=== PATIENT | female | born 1970 | race Asian ===

== ENCOUNTER 2016-06-15 19:16 | Emergency (ER) | payer OTHER ==
[~2016-06-15] VITALS: Ht 149.9 cm; Wt 68.0 kg
[2016-06-15 19:22] VITALS: Ht 149.9 cm; Wt 68.0 kg
[2016-06-15 19:33] VITALS: TEMP 98.3
[2016-06-15] MEDS ORDERED: NITROGLYCERIN 2% 1 GM OINT PKT TD STA (19:35)
[2016-06-15] MEDS ORDERED: ASPIRIN 81 MG TAB PO STA (19:35)
[2016-06-15] MEDS ORDERED: morphine 4 MG/ML VIAL IV STA (19:49)
[2016-06-15] MEDS ORDERED: ONDANSETRON 4 MG INJ IV STA (19:49)
[2016-06-15] MEDS ORDERED: NITROGLYCERIN (SL) 0.4 MG TAB SL PRN (20:00)
[2016-06-15] MEDS ORDERED: ATOR10TA65 PO (20:04)
[2016-06-15] MEDS ORDERED: METF1000 PO (20:04)
[2016-06-15] MEDS ORDERED: PRED20TA PO (20:04)
[2016-06-15 20:05] LABS: ADD SCAN DIFF NO
[2016-06-15] MEDS ORDERED: LORA10TA3 PO (20:05)
[2016-06-15] MEDS ORDERED: LOSA25TA5 PO (20:05)
[2016-06-15] MEDS ORDERED: ELTR75TA PO (20:06)
[2016-06-15] MEDS ORDERED: OMEP20CA16 PO (20:06)
[2016-06-15] MEDS ORDERED: ERGO500037 PO (20:07)
[2016-06-15 20:22] LABS: ANION GAP 14 (8-16); BLOOD UREA NITROGEN 7 mg/dl (7-20); CALCIUM 9.5 mg/dl (8.4-10.2); CARBON DIOXIDE 30 mmol/L (21-31); CHLORIDE 99 mmol/L (97-110); CREATININE 0.34 mg/dl (0.44-1.00); GLUCOSE 147 mg/dl (70-220); POTASSIUM 4.6 mmol/L (3.5-5.1); SODIUM 138 mmol/L (135-144)
--- NOTE | 2016-06-15 20:23 | RADRPT ---
PROCEDURE: CT Head without contrast. CLINICAL INDICATION: Headaches TECHNIQUE: The study was performed utilizing a GE 64-slice multidetector CT scanner. Direct spiral axial CT images of the brain were obtained from the vertex to the skull base without contrast. Cor onal and sagittal reformat images are provided. The CTDI vol is 44.68 mGy and the DLP is 720.23 mGy -cm. The images were reviewed on a PACS workstation. COMPARISON: No prior studies are available for comparison. FINDINGS: The ventricles and cortical sulci are within normal limits. The pascal-white matter differentiation i s maintained. No intra or extra-axial fluid collection or mass effect or shift in the midline struc tures is seen. The visualized paranasal sinuses, mastoid air cells, orbits, and calvarium are unrem arkable. IMPRESSION: Unremarkable CT of the head without contrast. RPTAT: [facility]PN[facility] Physician Markos Date Time Electronically viewed and signed by Physician Markos on 06/15/2016 20:23 /
[2016-06-15 20:33] LABS: INR 0.99; PROTIME 13.1 Sec (12.2-14.2)
[2016-06-15 20:34] LABS: PARTIAL THROMBOPLASTIN TIME 40.1 Sec (25.0-35.0)
[2016-06-15 20:44] LABS: TROPONIN-I < 0.012 ng/ml (0.00-0.12)
[2016-06-15 21:02] LABS: ABNORMAL IP MESSAGE 1; HEMATOCRIT 43.7 % (37.0-47.0); HEMOGLOBIN 13.8 g/dl (12.0-16.0); MEAN CORPUSCULAR HEMOGLOBIN 26.9 pg (29.0-33.0); MEAN CORPUSCULAR HGB CONC 31.6 g/dl (32.0-37.0); MEAN CORPUSCULAR VOLUME 85.2 fl (82.0-101.0); MEAN PLATELET VOLUME 11.1 fl (7.4-10.4); PLATELET COUNT 679 10^3/UL (140-415); RED BLOOD COUNT 5.13 10^6/ul (4.20-5.40); RED CELL DISTRIBUTION WIDTH 13.2 % (11.5-14.5); WHITE BLOOD COUNT 29.1 10^3/ul (4.8-10.8)
--- NOTE | 2016-06-15 21:11 | RADRPT ---
PROCEDURE: XR Chest. CLINICAL INDICATION: Chest pain. TECHNIQUE: Single frontal view of the chest. COMPARISON: None. FINDINGS: Cardiomegaly. Mild pulmonary vascular ingestion and patchy air space disease. No signs of pleural f luid or pneumothorax are seen. The osseous structures and soft tissues are unremarkable. IMPRESSION: Mild failure. RPTAT: [facility] Physician Laquita Date Time Electronically viewed and signed by Physician Laquita on 06/15/2016 21:11 RS/
[2016-06-15 21:15] VITALS: BP 127/78; PULSE 98; RESP 21
[2016-06-15] MEDS ORDERED: ONDA4TAB14 PO (21:22)
[2016-06-15] MEDS ORDERED: HYDR-902 PO (21:22)
--- NOTE | 2016-06-15 21:24 | ERD ---
ER Documentation Chief Complaint Date/Time DATE: 06/15/16 TIME: 21:24 Chief Complaint [place], body pain/weakness, tingling back, BLE and occiputal head all day HPI Patient is a 45-year-old female with diabetes and hypertension who presents with multiple complaints. She has headache, chest pain, and whole body pain. She says that she feels pain from her head down to her toes. She says that it is a 6 out of 10 pain. She has had this pain before. The symptoms started at 8 AM and come and goes. She feels pins and needles in her back and numbness and tingling in the bilateral lower extremities. She has had no aspirin as of yet. She tried Tylenol. Upon review of old medical records this the patient's first visit to the emergency department. She has an appointment with her doctor scheduled for tomorrow morning. ROS All systems reviewed and are negative except as per history of present illness. Medications Home Meds Active Scripts Ondansetron (Ondansetron Odt) 4 Mg Tab.rapdis, 4 MG PO Q6H Y for NAUSEA AND/OR VOMITING, #30 TAB Prov:MICHOACANO CARLISLE MD 06/15/16 Hydrocodone/Acetaminophen ([place] 10-325 Tablet) 1 Each Tablet, 1 TAB PO Q6H Y for PAIN, #7 TAB Prov:MICHOACANO CARLISLE MD 06/15/16 Reported Medications Ergocalciferol (Vitamin D2) (VITAMIN D2) 50,000 Unit Capsule, 43821 UNIT PO Q7D , CAP 06/15/16 Eltrombopag Olamine (Promacta) 75 Mg Tablet, 75 MG PO DAILY, TAB 06/15/16 Omeprazole* (Omeprazole*) 20 Mg Capsule.dr, 20 MG PO DAILY, #30 CAP 06/15/16 Loratadine* (Loratadine*) 10 Mg Tablet, 10 MG PO QAM, #30 TAB 06/15/16 Losartan Potassium* (Losartan Potassium*) 25 Mg Tablet, 25 MG PO DAILY, TAB 06/15/16 Atorvastatin Calcium (Atorvastatin Calcium) 10 Mg Tablet, 10 MG PO QHS, #30 TAB 06/15/16 Metformin Hcl* (Metformin Hcl*) 1,000 Mg Tablet, 1000 MG PO WITH BREAKFAST DINNE , #60 TAB 06/15/16 Prednisone* (Prednisone*) 20 Mg Tab, 60 MG PO DAILY, TAB 06/15/16 Allergies Allergies: Coded Allergies: No Known Drug Allergies (Verified Allergy, Unknown, 06/15/16) PMhx/Soc History of Surgery: No Anesthesia Reaction: No Hx Neurological Disorder: No Hx Respiratory Disorders: No Hx Cardiac Disorders: Yes (HTN) Hx Psychiatric Problems: No Hx Miscellaneous Medical Probl: Yes (DM, HIGH CHOLESTEROL) Hx Alcohol Use: No Hx Substance Use: No Hx Tobacco Use: No Smoking Status: Former smoker FmHx Family History: diabetes Physical Exam Vitals Vital Signs Date Time Temp Pulse Resp B/P Pulse Ox O2 Delivery O2 Flow Rate FiO2 06/15/16 21:15 98 21 127/78 100 Room Air 06/15/16 19:58 Nasal Cannula 2 06/15/16 19:33 98.3 95 28 129/80 96 Room Air 06/15/16 19:22 98.3 93 18 133/79 98 Physical Exam Const: Mild distress secondary to pain Head: Atraumatic Eyes: Normal Conjunctiva ENT: Normal External Ears, Nose and Mouth. Neck: Full range of motion..~ No meningismus. Resp: Clear to auscultation bilaterally Cardio: Regular rate and rhythm, no murmurs Abd: Soft, non tender, non distended. Normal bowel sounds Skin: No petechiae or rashes Back: No midline or flank tenderness Ext: No cyanosis, or edema Neur: Awake and alert, cranial nerves II through XII are intact, strength is 5 out of 5 in all 4 extremities, speech is normal Psych: Normal Mood and Affect Result Diagram: 06/15/16194406/15/161944 Results 24 hrs Laboratory Tests Test 06/15/16 19:45 White Blood Count 29.110^3/ul Red Blood Count 5.1310^6/ul Hemoglobin 13.8g/dl Hematocrit 43.7% Mean Corpuscular Volume 85.2fl Mean Corpuscular Hemoglobin 26.9pg Mean Corpuscular Hemoglobin Concent 31.6g/dl Red Cell Distribution Width 13.2% Platelet Count 13297^3/UL Mean Platelet Volume 11.1fl Prothrombin Time 13.1Sec Prothrombin Time Ratio 1.0 INR International Normalized Ratio 0.99 Activated Partial Thromboplast Time 40.1Sec Sodium Level 138mmol/L Potassium Level 4.6mmol/L Chloride Level 99mmol/L Carbon Dioxide Level 30mmol/L Anion Gap 14 Blood Urea Nitrogen 7mg/dl Creatinine 0.34mg/dl Glucose Level 147mg/dl Calcium Level 9.5mg/dl Troponin I < 0.012ng/ml Current Medications Medications (Trade) Dose Ordered Sig/Talha Route PRN Reason Start Time Stop Time Status Last Admin Dose Admin Aspirin (Aspirin) 162 mg ONCE STAT PO 06/15/16 19:35 06/15/16 19:42 DC Nitroglycerin (Nitroglycerin 2% Oint) 1 inch ONCE STAT TD 06/15/16 19:35 06/15/16 19:36 DC 06/15/16 19:51 Nitroglycerin (Nitroglycerin (Sl Tab) 0.4 Mg) 1 tab Q5M UP TO 3 DOSES PRN SL CHEST PAIN 06/15/16 20:00 06/15/16 21:45 DC Morphine Sulfate (morphine) 4 mg ONCE STAT IV 06/15/16 19:49 06/15/16 19:50 DC 06/15/16 19:54 Ondansetron HCl (Zofran Inj) 4 mg ONCE STAT IV 06/15/16 19:49 06/15/16 19:50 DC 06/15/16 19:53 Procedures/MDM EKG read by me: Rate/Rhythm: Regular rate and rhythm at a rate of 93 Intervals: Normal Impression: No evidence of ischemia or arrhythmia CT brain negative per radiology. Chest x-ray shows mild failure per radiology. Patient is a 45-year-old female who presents with headache, chest pain, and body pain. EKG was negative. CT brain was negative. Chest x-ray shows mild failure. She does have a leukocytosis with a white count of 29.1 but at this point I see no signs of serious bacterial infection otherwise. I doubt acute coronary syndrome, pneumonia, pneumothorax, pulmonary embolism, or aortic dissection. I doubt stroke or intracranial mass or hemorrhage. I believe outpatient management is appropriate as the patient has an appointment with her primary doctor tomorrow morning. She can return sooner for any worsening symptoms. I did discuss with her the possibility of admission but she would prefer to go home at this time. Departure Diagnosis: Primary Impression: Leukocytosis Leukocytosis type: unspecified Qualified Code: D72.829 - Leukocytosis, unspecified type Additional Impressions: Headache Headache type: unspecified Headache chronicity pattern: acute headache Intractability: not intractable Qualified Code: R51 - Acute nonintractable headache, unspecified headache type Chest pain Chest pain type: unspecified Qualified Code: R07.9 - Chest pain, unspecified type Condition: Fair Patient Instructions: Self-Care for Headaches, Chest Pain, Uncertain Cause Referrals: LATONIA BONILLA (PCP) Additional Instructions: Keep the appointment scheduled with your doctor for TOMORROW. MICHOACANO CARLISLE MD Jun 15, 2016 21:24
[2016-06-15 23:41] LABS: LYMPHOCYTES # 2.9 10^3/ul (0.8-2.9); MONOCYTE # 0.9 10^3/ul (0.3-0.9); NEUTROPHIL # 24.4 10^3/ul (1.6-7.5)
[2016-06-15 23:42] LABS: PLATELET ESTIMATE PLT APPEAR INCREASED
== END 2016-06-15 21:45 | disposition home or self-care (01) ==
LOC: E/R 19:16
DX: D72.829 Elevated white blood cell count, unspecified (principal); R07.9 Chest pain, unspecified; I10 Essential (primary) hypertension; E11.9 Type 2 diabetes mellitus without complications; Z79.84 Long term (current) use of oral hypoglycemic drugs; Z87.891 Personal history of nicotine dependence
CPT/HCPCS: 36415; 70450; 71010; 80048; 84484; 85025; 85610; 85730; 93005; 96374; 96375; J2270; J2405; Z7502; Z7610

== ENCOUNTER 2018-10-05 21:32 | Emergency (ER) | payer OTHER ==
[~2018-10-05] VITALS: Ht 157.5 cm; Wt 71.7 kg
[~2018-10-05 21:32] MED LIST: ATOR10TA65 PO; ELTR75TA PO; ERGO500013 PO; HYDR-3980 PO; LORA10TA3 PO; LOSA25TA12 PO; METF100010 PO; OMEP20CA16 PO; ONDA4TAB14 PO; PRED20TA PO
[2018-10-05 21:37] VITALS: Ht 157.5 cm; Wt 71.7 kg
[2018-10-06] MEDS ORDERED: SOD CHLORIDE 0.9% 100 ML ONE (00:10)
[2018-10-06] MEDS ORDERED: IOHEXOL 100 ML ONE (00:10)
[2018-10-06 01:09] VITALS: BP 115/90; PULSE 76; RESP 18
--- NOTE | 2018-10-06 01:13 | ERD ---
ER Documentation Chief Complaint Chief Complaint MID STERNAL CHEST PAIN STARTED TODAY HPI This is a 48-year-old female with a history of ITP and splenectomy who presents to the emergency room for evaluation of chest pain. The patient states that she has had this chest pain for the past 12 hours and localizes to the center of her chest and describes it as a dull and achy pain with no radiation. The patient denies any fever, shortness of breath, nausea, vomiting or diaphoresis or abdominal pain associated with this. The patient came to the ER today for evaluation of her symptoms and denies any aggravating or relieving factors currently ROS All systems reviewed and are negative except as per history of present illness. Medications Home Meds Active Scripts Ondansetron (Ondansetron Odt) 4 Mg Tab.rapdis, 4 MG PO Q6H PRN for NAUSEA AND/OR VOMITING, #30 TAB Prov:MICHOACANO CARLISLE MD 06/15/16 Hydrocodone/Acetaminophen ([place] 10-325 Tablet) 1 Each Tablet, 1 TAB PO Q6H PRN for PAIN, #7 TAB Prov:MICHOACANO CARLISLE MD 06/15/16 Reported Medications Ergocalciferol (Vitamin D2) (VITAMIN D2) 50,000 Unit Capsule, 99236 UNIT PO Q7D, CAP 06/15/16 Eltrombopag Olamine (Promacta) 75 Mg Tablet, 75 MG PO DAILY, TAB 06/15/16 Omeprazole* (Omeprazole*) 20 Mg Capsule.dr, 20 MG PO DAILY, #30 CAP 06/15/16 Loratadine* (Loratadine*) 10 Mg Tablet, 10 MG PO QAM, #30 TAB 06/15/16 Losartan Potassium* (Losartan Potassium*) 25 Mg Tablet, 25 MG PO DAILY, TAB 06/15/16 Atorvastatin Calcium (Atorvastatin Calcium) 10 Mg Tablet, 10 MG PO QHS, #30 TAB 06/15/16 Metformin Hcl* (Metformin Hcl*) 1,000 Mg Tablet, 1000 MG PO WITH BREAKFAST DINNE, #60 TAB 06/15/16 Prednisone* (Prednisone*) 20 Mg Tab, 60 MG PO DAILY, TAB 06/15/16 Allergies Allergies: Coded Allergies: No Known Drug Allergies (Verified Allergy, Unknown, 06/15/16) PMhx/Soc History of Surgery: Yes (Splenectomy, appendectomy, hysterectomy, ) Anesthesia Reaction: No Hx Neurological Disorder: No Hx Respiratory Disorders: Yes (Asthma) Hx Cardiac Disorders: Yes (HTN) Hx Psychiatric Problems: No Hx Miscellaneous Medical Probl: Yes (DM, HIGH CHOLESTEROL) Hx Alcohol Use: No Hx Substance Use: No Hx Tobacco Use: No Smoking Status: Never smoker Physical Exam Vitals Vital Signs Date Temp Pulse Resp B/P (MAP) Pulse Ox O2 O2 Flow FiO2 Time Delivery Rate 10/05/18 98.5 71 18 135/84 96 Room Air 23:11 (101) 10/05/18 98.5 79 18 164/94 96 21:37 (117) Physical Exam INITIAL VITAL SIGNS: Reviewed by me GENERAL: The patient is well developed and appropriate for usual state of health in no apparent distress HEENT: Pupils equal, round, and reactive to light. EOMI. There is no scleral icterus. NECK: C-spine is soft and supple, there is no meningismus. There is no cervical lymphadenopathy. LUNGS: Clear to auscultation bilaterally. There are no rales, wheezes or rhonchi. HEART: Regular rate and rhythm, no murmurs, clicks, rubs or gallops. ABDOMEN: Soft, non-tender, non-distended. There are bowel sounds in all four quadrants. No rebound or guarding. EXTREMITIES: There is no peripheral cyanosis or edema. No focal swelling or erythema. NEUROLOGICAL: The patient moves all four extremities with 5/5 strength. Cranial nerves II - XII are intact. Normal gait. Alert and oriented SKIN: There is no apparent rash or petechiae. HEME/LYMPHATIC: There is no evidence of excessive bruising or lymphedema. PSYCHIATRIC: The patient does not appear anxious or depressed. Result Diagram: 10/05/18225410/05/182254 Results 24 hrs Laboratory Tests Test 10/05/18 22:55 10/05/18 23:54 10/05/18 23:57 White Blood Count 23.2 10^3/ul Red Blood Count 5.19 10^6/ul Hemoglobin 13.3 g/dl Hematocrit 42.3 % Mean Corpuscular Volume 81.5 fl Mean Corpuscular Hemoglobin 25.6 pg Mean Corpuscular 31.4 g/dl Hemoglobin Concent Red Cell Distribution Width 15.5 % Platelet Count 399 10^3/UL Mean Platelet Volume 12.0 fl Immature Granulocytes % 1.300 % Neutrophils % 56.5 % Lymphocytes % 29.0 % Monocytes % 5.5 % Eosinophils % 7.3 % Basophils % 0.4 % Nucleated Red Blood Cells % 0.0 /100WBC Immature Granulocytes # 0.290 10^3/ul Neutrophils # 13.1 10^3/ul Lymphocytes # 6.7 10^3/ul Monocytes # 1.3 10^3/ul Eosinophils # 1.7 10^3/ul Basophils # 0.1 10^3/ul Nucleated Red Blood Cells # 0.0 10^3/ul Sodium Level 143 mmol/L Potassium Level 3.9 mmol/L Chloride Level 104 mmol/L Carbon Dioxide Level 28 mmol/L Anion Gap 11 Blood Urea Nitrogen 10 mg/dl Creatinine 0.54 mg/dl Est Glomerular Filtrat > 60 mL/min Rate mL/min Glucose Level 120 mg/dl Calcium Level 10.6 mg/dl Troponin I < 0.012 ng/ml B-Type Natriuretic Peptide < 11 PG/ML Urine Color STRAW Urine Clarity CLEAR Urine pH 5.0 Urine Specific [place] 1.008 Urine Ketones NEGATIVE mg/dL Urine Nitrite NEGATIVE mg/dL Urine Bilirubin NEGATIVE mg/dL Urine Urobilinogen NEGATIVE mg/dL Urine Leukocyte Esterase NEGATIVE Jacques/ul Urine Hemoglobin NEGATIVE mg/dL Urine Glucose NEGATIVE mg/dL Urine Total Protein NEGATIVE mg/dl POC Venous Lactate 1.5 mmol/L Procedures/MDM EKG: Rate/Rhythm: [Normal Sinus Rhythm] QRS, ST, T-waves: [No changes consistent w/ acute ischemia] Impression: [No evidence of ischemia or arrhythmia] EKG: #2 Rate/Rhythm: [Normal Sinus Rhythm] QRS, ST, T-waves: [No changes consistent w/ acute ischemia] Impression: [No evidence of ischemia or arrhythmia] Chest X-ray 1V Interpreted by me: Soft Tissue: No acute abnormalities Bones: No acute abnormalities Mediastinum/Cardiac Silhouette/Lungs: [No acute abnormalities] CTA chest: No pulmonary embolism. No pulmonary edema or consolidation. This 48-year-old female presents to the ER for evaluation of chest discomfort. On my exam the patient is afebrile and nontoxic-appearing. Her EKG is nonischemic at this time. The patient did have lab work obtained and she does have a leukocytosis. I did look at this patient's previous medical records and it does appear that she has had a leukocytosis which is chronic in nature. The patient has remained afebrile and nontoxic-appearing in the emergency room. She is remained hemodynamically stable. Chest x-ray was obtained and shows no signs of infiltrate. Second EKG was obtained and shows no signs of ST evolution or any ST changes. A CTA of the chest shows no signs of dissection or pulmonary embolism. On my reevaluation the patient is sitting in bed comfortably in no acute distress. I advised her she will need to follow-up with her primary care physician for outpatient referral to upper [facility] out for her chronic leukocytosis. Her lactic acid level is 1.5 and I doubt sepsis. The patient did have a cytosis on her last presentation to the emergency room and I do feel that this could be chronic in nature. The patient was advised she can return to the ER at any moment for reevaluation. She does feel comfortable with her plan of care. Differential diagnoses entertained was broad with potential high acuity. Patient has been evaluated for acute myocardial infarction, unstable angina, aortic dissection, pulmonary embolism, other intrathoracic and cardiac concerns. Ultimately the patient's evaluation is nondiagnostic. Based on the patient's lack of risk factors, as well as the patient's clinical, laboratory, and imaging data, the patient appears to be low risk for these high risk causes of chest pain. Departure Diagnosis: Primary Impression: Chest pain Additional Impression: Leukocytosis Condition: PATRICE Barber DO Oct 06, 2018 01:13
== END 2018-10-06 01:39 | disposition home or self-care (01) ==
LOC: E/R 21:32
DX: D72.829 Elevated white blood cell count, unspecified (principal); E11.9 Type 2 diabetes mellitus without complications; I10 Essential (primary) hypertension; J45.909 Unspecified asthma, uncomplicated; Z79.84 Long term (current) use of oral hypoglycemic drugs
CPT/HCPCS: 36415; 71045; 71275; 80048; 81003; 83605; 83880; 84484; 85025; 87040; Z7502; 93005; Q9967